=== PATIENT | female | born 1945 | race Native Hawaiian/Other Pacific Islander ===

== ENCOUNTER 2020-03-21 13:35 | Emergency (ER) | payer OTHER ==
[~2020-03-21] VITALS: Ht 154.9 cm; Wt 63.5 kg
[2020-03-21 14:27] LABS: PLATELET COUNT 255 K/uL (152-353)
[2020-03-21 14:29] LABS: POTASSIUM 4.6 mmol/L (3.6-5.2)
[2020-03-21 15:58] VITALS: BP 161/72; TEMP 97.8
[2020-03-21] MEDS ORDERED: CARB25TA29 PO (17:00)
[2020-03-21] MEDS ORDERED: MENTHOL 4% EX (17:02)
[2020-03-21] MEDS ORDERED: NEURONTIN 100M100 MG PO (17:03)
[2020-03-21] MEDS ORDERED: CLARITIN10 M1 PO (17:03)
[2020-03-21] MEDS ORDERED: DOCU100C10 PO (17:03)
[2020-03-21] MEDS ORDERED: GLIP10TA55 PO (17:05)
[2020-03-21] MEDS ORDERED: HUMALOG KW100 UNIT/M SC ×2 (17:07→17:11)
[2020-03-21] MEDS ORDERED: HYDR10TA47A PO (17:11)
[2020-03-21] MEDS ORDERED: LAMICTAL25 MG PO (17:12)
[2020-03-21] MEDS ORDERED: LAMOTRIGINE25 MG PO (17:12)
[2020-03-21] MEDS ORDERED: FURO20TA67 PO (17:13)
[2020-03-21] MEDS ORDERED: MELATONIN3 M1 PO (17:14)
[2020-03-21] MEDS ORDERED: INSUINJP SC (17:14)
[2020-03-21] MEDS ORDERED: LEVO0.0218 PO (17:14)
[2020-03-21] MEDS ORDERED: MIRAPEX0.5 MG PO (17:15)
[2020-03-21] MEDS ORDERED: MULTI VITAMIN A1 TAB PO (17:15)
[2020-03-21] MEDS ORDERED: PROTONIX20 MG PO (17:15)
[2020-03-21] MEDS ORDERED: POT CHLORIDE10 ME1 PO (17:16)
[2020-03-21] MEDS ORDERED: DICL1GEL2 TOP (17:16)
[2020-03-21] MEDS ORDERED: TYLENOL325 MG PO (17:17)
[2020-03-21] MEDS ORDERED: ALUM-67 PO (17:17)
[2020-03-21] MEDS ORDERED: MAGNSUS68 PO (17:18)
[2020-03-21] MEDS ORDERED: TUMS500 MG PO (17:19)
[2020-03-21] MEDS ORDERED: [UNRECOGNIZED DRUG - OTHER] MT (17:20)
== END 2020-03-21 15:58 | disposition other institution (70) ==
LOC: EDBD 13:38 → ED 13:38
PROVIDERS: Family Medicine
DX: R46.89 Other symptoms and signs involving appearance and behavior (principal); I50.9 Heart failure, unspecified; Z11.59 Encounter for screening for other viral diseases; Z04.6 Encounter for general psychiatric examination, requested by authority; Z79.899 Other long term (current) drug therapy
CPT/HCPCS: 80053; 81000; 85027; 87077; 87086; 87088; 87186; 87635; 93005; 99283; 99285; U0003

== ENCOUNTER 2021-05-25 19:14 | Emergency (ER) | payer OTHER ==
[~2021-05-25] VITALS: Ht 152.4 cm; Wt 80.7 kg
[~2021-05-25 19:14] MED LIST: ACET-206 PO; ALUM-67 PO; CARB25TA29 PO; CARB6.5S5 OTIC; CARBTAB13 PO; CHOL100034 PO; CLARITIN10 M1 PO; DICL1GEL2 TOP; DOCU SOFT100 MG PO; DOCU100C10 PO; DULO30CA PO; DULOXETINE HYDR20 MG PO; ERTA1INJ2 IM; ESCI10TA PO; EUTHYROX25 MCG PO; FENOFIBRATE PO; FURO20TA67 PO; GABA300C2 PO; GAVILAX17 GM PO; GLIP10TA55 PO; HUMALOG JU100 UNIT/M SC; HUMALOG KW100 UNIT/M SC; HUMULIN R100 UNIT/M SC; HYDR10TA47A PO; HYDR5TAB9 PO; HYDROCODONE BIT1 TA2 PO; INSU300I SC; INSUINJ20 SC; INSUINJP SC; LAMICTAL150 MG PO; LAMICTAL25 MG PO; LAMO100T PO; LAMOTRIGINE25 MG PO; LEVO0.0218 PO; LEVO0.0529 PO; LOPE2CAP17 PO; LYRICA25 MG PO; LYRICA75 MG PO; MAGNSUS68 PO; MELATONIN3 M1 PO; MENTHOL 4% EX; MENTHOL EX; MIRAPEX0.5 MG PO; MULTI VITAMIN A1 TAB PO; MULTIPLE VITAMI1 TAB PO; NEURONTIN 100M100 MG PO; NOVOLIN R100 UNIT/1 SC; PANTOPRAZOLE 40MG TA PO; POT CHLORIDE10 ME1 PO; POTASSIUM CHLO20 ME1 PO; PROTONIX20 MG PO; ROPINIROLE0.25 MG PO; ROPINIROLE0.5 MG PO; TRICOR145 M1 PO; TUMS500 MG PO; TYLENOL325 MG PO; VITAMIN D22000 UNIT PO; [UNRECOGNIZED DRUG - OTHER] EX; [UNRECOGNIZED DRUG - OTHER] MT; [UNRECOGNIZED DRUG - OTHER] TOP
[2021-05-25 19:46] LABS: PLATELET COUNT 337 K/uL (152-353)
[2021-05-25 19:53] LABS: POTASSIUM 5.4 mmol/L (3.6-5.2)
[2021-05-25 21:01] VITALS: BP 128/88; TEMP 98.3
[2021-05-27] MEDS ORDERED: LEVO0.0218 PO (18:52)
[2021-05-27] MEDS ORDERED: PANTOPRAZOLE 40MG TA PO (18:54)
[2021-05-27] MEDS ORDERED: TRICOR145 M1 PO (18:57)
[2021-05-27] MEDS ORDERED: FUROSEMIDE40 MG PO (19:04)
[2021-05-27] MEDS ORDERED: OXYB5TAB64 PO (19:07)
[2021-05-27] MEDS ORDERED: IRON325 MG PO (19:10)
[2021-05-27] MEDS ORDERED: INSUINJ8 SC ×2 (19:13→19:32)
[2021-05-27] MEDS ORDERED: JARDIANCE25 MG PO (19:14)
[2021-05-27] MEDS ORDERED: VITAMIN D50000 UNIT PO (19:16)
[2021-05-27] MEDS ORDERED: ENTRESTO 24-261 TAB PO (19:18)
[2021-05-27] MEDS ORDERED: INSU100I SC (19:23)
[2021-05-27] MEDS ORDERED: DHIVY 100-25 MG1 TAB PO (19:27)
[2021-05-27] MEDS ORDERED: ROPINIROLE2 MG PO (19:30)
[2021-05-27] MEDS ORDERED: ARTIFICIAL TEARS1 % OPTH (19:37)
[2021-05-27] MEDS ORDERED: IPRATROPIUM/ INH (19:38)
[2021-05-27] MEDS ORDERED: MIDODRINE5 MG PO (19:42)
[2021-05-27] MEDS ORDERED: CARB6.5S5 OTIC (19:46)
[2021-05-27] MEDS ORDERED: OLANZAPINE5 MG PO (19:48)
[2021-05-27] MEDS ORDERED: DULOXETINE HCL30 MG PO (19:54)
[2021-05-27] MEDS ORDERED: TRAZODONE HYDRO50 MG PO (19:55)
[2021-05-27] MEDS ORDERED: CETI10TA PO (19:57)
[2021-05-27] MEDS ORDERED: TRAMADOL HYDROC50 MG PO ×2 (20:01→20:02)
== END 2021-05-25 21:01 | disposition still patient (30) ==
LOC: ED 19:14
PROVIDERS: Hospitalist
DX: F31.89 Other bipolar disorder (principal); R46.89 Other symptoms and signs involving appearance and behavior; Z11.52 Encounter for screening for COVID-19; Z04.6 Encounter for general psychiatric examination, requested by authority
CPT/HCPCS: 36415; 80053; 85027; 87635; 99283; U0003